=== PATIENT | female | born 1940 | race Caucasian/White ===

== ENCOUNTER 2024-08-02 14:01 | Emergency (ER) | payer OTHER, SELFPAY ==
[2024-08-02 14:02] VITALS: BP 147/78
--- NOTE | 2024-08-02 14:39 | ED.GENMED ---
History of Present Illness
General
Chief Complaint: Musculo-Skeletal Complaint
Source: patient
Exam Limitations: none
Time Seen by Provider: 08/02/24 14:20
Nursing documentation reviewed up to this point in time: agreed with
History of Present Illness
History of Present Illness:
Patient is an 84-year female who complains of pain behind her left knee. This started several nights ago. She denies any actual injury. When she tries to bear weight she has pain. She however has been able to use her walker or a cane to get
around. She is on Xarelto has not missed a dose. She denies any swelling, denies any redness fever chills. She has been able to get around with her walker.
Past History
Past History
ED Past Medical History: Arrthythmia (paroxysmal atrial fibrillation), Asthma, CAD, CHF, COPD, HTN, Hypercholesterolemia and Other (Arthritis, aortic atheroma)
ED Past Surgical History: Cholecystectomy
Social History
Tobacco: Non-smoker
Alcohol: None
Drug: None
Personal:
Living: with family
Employment: Retired
Review of Systems
Review of Systems
Allergies reviewed?: Yes
All Other Systems: ROS reviewed and negative except as documented in HPI and ROS
Constitutional: Reports no symptoms
Musculoskeletal: Reports other ( pain behind left knee )
Skin: Reports no symptoms
Neurological: Reports no symptoms
Psychiatric: Reports no symptoms
Phy Exam
General Physical Exam
General Presentation: no apparent distress
General age: appears stated age
General Skin: warm and dry
General Habitus: normal
General Mental: alert
General Hydration: appears well hydrated
Neurological Exam
Neurological Exam: alert and oriented x3
Musculoskeletal Exam
Musculoskeletal Exam: other (left l/e with strong pulses no obvious swelling ;pt has pain with knee flexion full range of motion to left hip;)
Skin Exam
Skin Exam: normal color and warm/dry
Psychiatric Exam
Psychiatric Exam: normal mood/affect
Course
Orders/Labs/Results
Orders:
Orders
08/02/24 14:05
CR Knee - Left 4 Or More View* Urgent
Comment:
Reason For Exam: Injury
08/02/24 14:40
Venous Doppler Lwr Ext Left [US Periph Venous LOWER Ext LT] Urgent
Comment:
Reason For Exam: pain posterior knee
08/02/24 16:35
Dimitrios Wrap Left-Treatment ONCE
Comment: left knee
Acetaminophen [Tylenol] 650 mg PO NOW STA
Vital Signs
Initial and Last Documented VS:
Initial Vital Signs
Temp Pulse Resp BP Pulse Ox
97.8 F 99 16 147/78 95
08/02/24 14:02 08/02/24 14:02 08/02/24 14:02 08/02/24 14:02 08/02/24 14:02
Last Documented Vital Signs
Temp Pulse Resp BP Pulse Ox
97.8 F 99 16 147/78 95
08/02/24 14:02 08/02/24 14:02 08/02/24 14:02 08/02/24 14:02 08/02/24 14:02
MDM/Problems Addressed
MDM/Problems Addressed:
Patient has been having left posterior knee pain though no injury or with flexion and bearing weight. No evidence of infection no complaints of fever chills redness. She is on anticoagulation ultrasound negative x-ray unremarkable for fracture
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
Pt has her own orthopedic doctor with whom she will follow-up with. Will DC with Dimitrios elevation rest Tylenol and outpatient follow-up
*Critical Care Note
Total Time (30-74mins, 75-104mins- exclusive of procedures): Not Applicable
ED Attending Note
-
Portions of this chart may have been created with voice recognition software.� Occasional wrong word or��sound alike� substitutions may have occurred due to the inherent limitations of voice recognition software.
Discharge Plan
Departure
Patient Disposition: Home (Routine Discharge)
Date of Disposition: 08/02/24
Time of Disposition: 16:35
Patient with high blood pressure during this ER visit?: Yes
Condition: Fair
Covid-19: Not Applicable
Discharge Problem:
knee pain
Prescriptions:
No Action
furosemide [Lasix] 40 mg Tablet
40 mg PO DAILY
levothyroxine 75 mcg Tablet
75 mcg PO DAILY
aspirin 81 mg Tablet,Chewable
81 mg PO DAILY
albuterol sulfate [Ventolin HFA] 90 mcg/actuation Hfa Aerosol Inhaler
1 puff INHALATION PRN PRN (Reason: sob)
cholecalciferol (vitamin D3) [Vitamin D3] 25 mcg (1,000 unit) Tablet
1 unit PO DAILY
budesonide-formoterol [Symbicort] 160-4.5 mcg/actuation Hfa Aerosol Inhaler
1 puff INHALATION BID
losartan 25 mg Tablet
25 mg PO DAILY Qty: 90 0RF
Eliquis 5 mg Tablet
5 mg PO BID Qty: 180 0RF
rosuvastatin 20 mg tablet
20 mg PO DAILY Qty: 90 0RF
Referrals:
Ayan Richey MD [Family Provider] -
Activity Restrictions/Additional Instructions:
As discussed keep elevate is much as possible and rest knee. He may ice the area intermittently over the next 1 to 2 days. Wear Dimitrios wrap for support during the day remove at night while sleeping. Use a walker for ambulation. Call your orthopedic
doctor Sunday for an appointment next week and return if any worsening of symptoms.
Interventions
Interventions:
ED-Musculoskeletal Assessment Last Done: 08/02/24 15:41
Discharge Date and Time
Print Language: GERMAN
[2024-08-02] MEDS: TYLENOL 650 MG PO (16:42)
== END 2024-08-02 17:01 | disposition home or self-care (01) ==
LOC: EMR 14:01
PROVIDERS: EMERGENCY PHYSICIAN Student in an Organized Health Care Education/Training Program; FAMILY PHYSICIAN Family Medicine
DX: M25.562 Pain in left knee (principal); I48.0 Paroxysmal atrial fibrillation; J45.909 Unspecified asthma, uncomplicated; I25.10 Atherosclerotic heart disease of native coronary artery without angina pectoris; I11.0 Hypertensive heart disease with heart failure; I50.9 Heart failure, unspecified; E78.00 Pure hypercholesterolemia, unspecified; M19.90 Unspecified osteoarthritis, unspecified site; Z79.01 Long term (current) use of anticoagulants; Z90.49 Acquired absence of other specified parts of digestive tract
CPT/HCPCS: 99284; 73564; 93971